=== PATIENT | female | born 1985 | race Two or more races ===

== ENCOUNTER 2017-08-01 14:26 | Emergency (ER) | payer OTHER ==
[~2017-08-01] VITALS: Ht 167.6 cm; Wt 104.3 kg
[~2017-08-01 14:26] MED LIST: AZITHROMYCIN250 MG ORAL; FLONASE1 SPRAYS NASAL; IBUPROFEN600 MG ORAL; TRAMADOL HCL50 MG ORAL; ZITHROMAX250 MG ORAL
[2017-08-01 14:48] VITALS: BP 129/77
--- NOTE | 2017-08-01 14:51 | Emergency Room Report ---
History of Present Illness General Chief Complaint: Skin Rash/Abscess Source: Patient Present Illness HPI 32-year-old female patient presents ER complaining of swelling near nail of left thumb on the ulnar side. Patient reports history of similar symptoms 1 year ago on his hand. Patient reports was drained at that time. Patient reports no drainage coming from hand at this time. Patient reports no other symptoms. Patient denies fever, chest pain, shortness of breath. Patient reports hx of biting nails. Allergies: Coded Allergies: No Known Allergies (Unverified , 03/30/14) Patient History Past Medical History: see triage record Last Menstrual Period: NONE-Hysterectomy Now: No Reviewed Nursing Documentation: PMH: Agreed; PSxH: Agreed Nursing Documentation-PMH Past Medical History: No History, Except For Hx Hypertension: No Hx Asthma: No - TONSILITIS Review of Systems All Other Systems: negative except mentioned in HPI Physical Exam Vital Signs Date Time Temp Pulse Resp B/P (MAP) Pulse Ox O2 Delivery O2 Flow Rate FiO2 08/01/17 14:28 98.0 118 20 133/87 97 Room Air 98.1 Sp02 EP Interpretation: reviewed, normal General Appearance: well appearing, no apparent distress, alert, GCS 15, non- toxic Head: normocephalic, atraumatic Eyes: bilateral eye normal inspection, bilateral eye PERRL Neck: full range of motion Respiratory: lungs clear, normal breath sounds, no rhonchi, no respiratory distress, no accessory muscle use, no wheezing, speaking full sentences Cardiovascular #1: regular rate, rhythm, no edema Cardiovascular #2: 2+ radial (R), 2+ radial (L) Musculoskeletal: back normal, digits/nails normal, gait/station normal, normal range of motion, non-tender, other - NVI Neurologic: alert, oriented x3, responsive, motor strength/tone normal, sensory intact Psychiatric: mood/affect normal Skin: other - left hand, left thumb: paronychia near lateral border of nail bed , no drainge, eryethma, TTP Procedures Incision and Drainage Incision and Drainage : Consent: Verbal Site: thumb Blade Size: 11 I & D Procedure: betadine prep, sterile drapes applied, sterile dressing applied Wound Location: upper extremity - left thumb Wound's Depth, Shape: superficial Wound Length (cm): 1 Wound Explored: contaminated Irrigated w/ Saline (ccs): 10 Anesthesia: 1% Lidocaine Volume Anesthetic (ccs): 1 Splint Applied?: No Sling Applied?: No Patient Tolerated: Well Complications: None Medical Decision Making PA Attestation Dr. Correa is my supervising Physician whom patient management has been discussed with. Diagnostic Impression: Primary Impression: Paronychia of left thumb ER Course Pt. presents to the ED c/o abscess on finger. Ddx considered but are not limited to rash, cellulitis, abscess, felon, paronychia, hangnail, herpetic kiran. Vital signs: are WNL, pt. is afebrile Ordered Bacitracin and Lidocaine ED COURSE: Digital block of finger performed with lidocaine. I&D of paronychia performed. Pus expressed from finger. Patient finger no longer swollen, patient reports decrease in pain symptoms. Sterile dressing and Bacitracin applied to wound following procedure. Patient instructed to keep wound clean and dry and to follow-up with primary care provider in 2 days for wound check. Stop biting nails. Take full course of abx. Return to ER if symptoms worsen. DISCHARGE -Rx provided for Bactrim to cover for MRSA. -Rx provided for Tylenol #3. CURES reviewed. Rx provided for Bacitracin. At this time pt. is stable for d/c to home. Patient resting comfortably, in no acute distress, nontoxic appearing, laughing and smiling. Will provide printed patient care instructions and any necessary prescriptions. Care plan and follow up instructions have been discussed with the patient prior to discharge. Patient instructed to follow-up with primary care provider in 2 - 3 days for wound recheck. Patient questions asked and answered. Patient reports understanding and agreement to treatment plan. ER precautions given. Patient instructed to return to ER immediately for any new or worsening of symptoms including but not limited to fever, worsening of pain symptoms, worsening of erythema, red streaking. - Please note that this Emergency Department Report was dictated using Mirror [employer] rigger technology software, occasionally this can lead to erroneous entry secondary to interpretation by the dictation equipment. Last Vital Signs Date Time Temp Pulse Resp B/P (MAP) Pulse Ox O2 Delivery O2 Flow Rate FiO2 08/01/17 14:28 98.0 118 20 133/87 97 Room Air 98.1 Disposition: HOME, SELF-CARE Condition: Stable Scripts Acetaminophen With Codeine (T#3) (TYLENOL #3 TAB*) Y Tab 1 TAB ORAL Q4H PRN for For Pain, #10 TAB Prov: Hayden Covington 08/01/17 Bacitracin/Polymyxin B Sulfate (BACITRACIN-POLYMYXIN OINTMENT) 28.35 Gm Oint...g. 1 APPLIC TP BID for 14 Days, GM Prov: Hayden Covington 08/01/17 Trimethoprim/Sulfamethoxazole 160/800* (BACTRIM DS TABLET*) 1 Each Tablet 1 TAB ORAL TWICE A DAY for 7 Days, #14 TAB Prov: Hayden Covington 08/01/17 Patient Instructions: Paronychia, [id number] Additional Instructions: Followup with primary care provider in 2-3 days for wound check. Keep wound clean and dry. Warm soaks. Do not bite nails. Take medications as directed. Patient questions asked and answered. ER precautions given, patient instructed to return to ER immediately for any new or worsening of symptoms. Hayden Covington August 01, 2017 14:51
[2017-08-01] MEDS ORDERED: Lidocaine 1% Plain 30 ml INJ ONE (15:00)
[2017-08-01] MEDS ORDERED: Tylenol #3 tab (300mg/30mg) ORAL ONE (15:00)
[2017-08-01] MEDS ORDERED: Bacitracin Oint UD TOPIC ONE (15:00)
[2017-08-01] MEDS ORDERED: BACITRACIN-P28.35 GM TP (15:09)
[2017-08-01] MEDS ORDERED: BACTRIM DS TAB1 EAC1 ORAL (15:09)
[2017-08-01] MEDS ORDERED: ACETAMINOPHEN-1 EAC1 ORAL (15:28)
[2017-08-01 15:45] VITALS: BP 119/80
== END 2017-08-01 16:50 | disposition home or self-care (01) ==
LOC: EMR 16:13
DX: L03.012 Cellulitis of left finger (principal)
CPT/HCPCS: 10060; 99284; J2001

== ENCOUNTER 2018-01-09 15:06 | Emergency (ER) | payer OTHER ==
[~2018-01-09] VITALS: Ht 167.6 cm; Wt 98.4 kg
[~2018-01-09 15:06] MED LIST changes: +ACETAMINOPHEN-1 EAC1 ORAL; +BACITRACIN-P28.35 GM TP; +BACTRIM DS TAB1 EAC1 ORAL
[2018-01-09] MEDS ORDERED: NKM (15:13)
[2018-01-09 15:15] VITALS: BP 133/85
--- NOTE | 2018-01-09 16:05 | Emergency Room Report ---
History of Present Illness General Chief Complaint: Pain Source: Patient, Medical Record Present Illness HPI 32-year-old female presents to the emergency department complaining of 9 out of 10 in severity progressive localized pain and the right side of her groin 4 days. Patient reports that she initially felt a small bump which has progressed in size. Patient denies fevers, chills, open wounds, rashes or history of similar presentation. Patient states that she does frequently get small abscesses in her axilla. Patient states she has never had an abscess in this area. Denies recent travel, recent illness or ill contacts. denies blisters, oral lesions, or sloughing of the skin Allergies: Coded Allergies: No Known Allergies (Unverified , 03/30/14) Patient History Past Medical History: see triage record Past Surgical History: none Pertinent Family History: none Last Menstrual Period: hysterectomy done on 06/13 Now: No Immunizations: UTD Reviewed Nursing Documentation: PMH: Agreed; PSxH: Agreed Nursing Documentation-PMH Past Medical History: No History, Except For Hx Hypertension: No Hx Asthma: No - TONSILITIS Hx Gastrointestinal Problems: No - Hysterectomy 07/14 Review of Systems All Other Systems: negative except mentioned in HPI Physical Exam Vital Signs Date Time Temp Pulse Resp B/P (MAP) Pulse Ox O2 Delivery O2 Flow Rate FiO2 01/09/18 15:10 98.3 94 18 133/85 98 Room Air 98.2 Sp02 EP Interpretation: reviewed, normal General Appearance: no apparent distress, alert, GCS 15, non-toxic Head: normocephalic, atraumatic Eyes: bilateral eye normal inspection, bilateral eye PERRL ENT: hearing grossly normal, normal voice Neck: full range of motion Respiratory: lungs clear, normal breath sounds, speaking full sentences Cardiovascular #1: regular rate, rhythm Musculoskeletal: back normal, gait/station normal, normal range of motion, non- tender Neurologic: alert, oriented x3, responsive, motor strength/tone normal, sensory intact, normal gait, speech normal, grossly normal Psychiatric: judgement/insight normal Skin: no rash, warm/dry, well hydrated, other - 1.5 cm indurated swollen, erythematous and tender lump on the right inguinal area, border is easily palpated, there is some fluctuance, no blisters or vesicles. Lymphatic: no adenopathy Procedures Incision and Drainage Incision and Drainage : Consent: Verbal Site: right inguinal area Blade Size: 11 I & D Procedure: betadine prep, sterile drapes applied, sterile dressing applied Wound Location: upper extremity - right inguinal area Wound's Depth, Shape: linear Wound Length (cm): 1 Wound Explored: contaminated - thick purulent material was expressed. Anesthesia: Lidocaine w/ Epi Volume Anesthetic (ccs): 1 Splint Applied?: No Sling Applied?: No Patient Tolerated: Well Complications: None Medical Decision Making PA Attestation Dr. Galvan is my supervising Physician whom patient management has been discussed with. Diagnostic Impression: Primary Impression: Infected epidermoid cyst ER Course 32-year-old female presents to the emergency department complaining of 9 out of 10 in severity progressive localized pain and the right side of her groin 4 days. Patient reports that she initially felt a small bump which has progressed in size. Patient denies fevers, chills, open wounds, rashes or history of similar presentation. Patient states that she does frequently get small abscesses in her axilla. Patient states she has never had an abscess in this area. Denies recent travel, recent illness or ill contacts. denies blisters, oral lesions, or sloughing of the skin Ddx considered but are not limited to cellulitis, abscess, cystic acne, necrotizing fasciitis, insect bite. Vital signs: are WNL, pt. is afebrile H&PE are most consistent with infected cyst in the right inguinal area. ORDERS: none required at this time, the diagnosis is clinical ED INTERVENTIONS: -Tylenol PO -I & D. - pt. reported immediate relief of pain after incision and drainage. she states the pressure pain is no longer there. -bacitracin and sterile dressing is applied by the RN. d/w pt. that this may return in the futures as definitive treatment for this condition is surgical excision. DISCHARGE: At this time pt. is stable for d/c to home. Will provide printed patient care instructions, and any necessary prescriptions. Care plan and follow up instructions have been discussed with the patient prior to discharge. Last Vital Signs Date Time Temp Pulse Resp B/P (MAP) Pulse Ox O2 Delivery O2 Flow Rate FiO2 01/09/18 15:15 98.2 94 18 133/85 98 Room Air 98.2 Status: improved Disposition: HOME, SELF-CARE Condition: Stable Scripts Bacitracin/Polymyxin B Sulfate (BACITRACIN-POLYMYXIN OINTMENT) 28.35 Gm Oint...g. 1 APPLIC TP BID, #28.3 GM Prov: Erica Degroot 01/09/18 Trimethoprim/Sulfamethoxazole 160/800* (BACTRIM DS TABLET*) 1 Each Tablet 1 TAB ORAL TWICE A DAY for 7 Days, #14 TAB Prov: Erica Degroot 01/09/18 Cephalexin* (KEFLEX*) 500 Mg Capsule 500 MG ORAL EVERY 12 HOURS for 7 Days, #14 CAP 0 Refills Prov: Erica Degroot 01/09/18 Referrals: [facility],REFERRING (PCP) Patient Instructions: Epidermal Cyst, [id number], Hidradenitis Suppurativa Additional Instructions: Take medications as directed. Follow up with a Primary Care Provider in 3-5 days, even if your symptoms have resolved. --Please review list of primary care clinics, if you do not already have a primary care provider Return sooner to ED if new symptoms occur, or current symptoms become worse. - Please note that this Emergency Department Report was dictated using [employer] Republicdriller's assistant technology software, occasionally this can lead to erroneous entry secondary to interpretation by the dictation equipment. Erica Degroot Jan 09, 2018 16:05
[2018-01-09] MEDS ORDERED: BACTRIM DS TAB1 EAC1 ORAL (16:07)
[2018-01-09] MEDS ORDERED: BACITRACIN-P28.35 GM TP (16:07)
[2018-01-09] MEDS ORDERED: CEPHALEXIN500 MG ORAL (16:07)
[2018-01-09] MEDS ORDERED: Bacitracin Oint UD TOPIC ONE (16:15)
[2018-01-09 16:33] VITALS: BP 133/85
== END 2018-01-09 16:33 | disposition home or self-care (01) ==
LOC: EMR 16:01
DX: L72.0 Epidermal cyst (principal)
CPT/HCPCS: 10060; 99283

== ENCOUNTER 2020-01-31 23:58 | Emergency (ER) | payer OTHER ==
[~2020-01-31] VITALS: Ht 165.1 cm; Wt 77.1 kg
[~2020-01-31 23:58] MED LIST changes: +CEPHALEXIN500 MG ORAL; +NKM
[2020-02-01 00:08] VITALS: BP 113/75
--- NOTE | 2020-02-01 00:16 | NUR ---
Nurse Note: Pt walked in c/o lower abd pain since 3 days. Pt stated she has been taking MoM at home, not effective. Pt stated last BM was AM. Pt stated pain is more of a discomfort.
--- NOTE | 2020-02-01 00:19 | Emergency Room Report ---
History of Present Illness General Chief Complaint: Abdominal Pain Source: Patient Present Illness HPI 84-year-old female with no significant past medical history. She had a previous . She presents with chief plan abdominal pain. Onset for 3 days now. But worse today. She has been taking milk of magnesia for her pain is not helping. Denies any nausea vomiting or diarrhea. No fever or chills. Pain is 9 out of 10. Worse with palpation. Better with rest. Pain is diffuse in nature. No urinary complaint. Allergies: Coded Allergies: No Known Allergies (Unverified , 03/30/14) COVID-19 Screening Contact w/high risk pt: No Experienced COVID-19 symptoms?: No COVID-19 Testing performed LOWERATOR OPERATOR: No Patient History Past Medical History: see triage record, old chart reviewed Past Surgical History: Pertinent Family History: none Social History: Denies: smoking Last Menstrual Period: na Now: No Immunizations: other Reviewed Nursing Documentation: PMH: Agreed; PSxH: Agreed Nursing Documentation-PMH Past Medical History Deferred: Patient Unconscious Hx Cardiac Problems: No Hx Hypertension: No Hx Asthma: No - TONSILITIS Hx Gastrointestinal Problems: No - Hysterectomy 07/14; abdomenoplasy Review of Systems Eye: Denies: eye pain, blurred vision ENT: Denies: ear pain, nose congestion, throat swelling Respiratory: Denies: cough, shortness of breath Cardiovascular: Denies: chest pain, palpitations Gastrointestinal: Reports: abdominal pain; Denies: diarrhea, nausea, vomiting Musculoskeletal: Denies: back pain, joint pain Skin: Denies: rash Neurological: Denies: headache, numbness Endocrine: Denies: increased thirst, increased urine Hematologic/Lymphatic: Denies: easy bruising All Other Systems: negative except mentioned in HPI Physical Exam Vital Signs Date Time Temp Pulse Resp B/P (MAP) Pulse Ox O2 Delivery O2 Flow Rate FiO2 02/01/20 00:00 98.4 80 17 113/75 (88) 96 Room Air Vitals normal Sp02 EP Interpretation: reviewed, normal General Appearance: well appearing, no apparent distress, alert Head: normocephalic, atraumatic Eyes: bilateral eye PERRL, bilateral eye EOMI ENT: hearing grossly normal, normal pharynx Neck: full range of motion, supple, no meningismus Respiratory: chest non-tender, lungs clear, normal breath sounds Cardiovascular #1: regular rate, rhythm, no murmur Gastrointestinal: no mass, no organomegaly, no bruit, non-distended, abnormal bowel sounds - Hyperactive, tenderness - Diffuse Musculoskeletal: back normal, normal range of motion, gait/station normal Psychiatric: mood/affect normal Medical Decision Making Diagnostic Impression: Primary Impression: Abdominal pain Qualified Codes: R10.84 - Generalized abdominal pain Additional Impression: Enteritis ER Course This patient presents with abdominal pain. Labs unremarkable. CT scan show possible enteritis/diarrheal disease. This probably secondary to the milk of magnesia and magnesium citrate that she took. No evidence of acute abdomen or obstruction. No evidence of UTI. Will discharge home. CT/MRI/US Diagnostic Results CT/MRI/US Diagnostic Results : Imaging Test Ordered: CT abdomen pelvis Impression Read by radiologist. None [place] multiple prominent lymph nodes in the upper retroperitoneum. Large bowel contains some fluid. Last Vital Signs Date Time Temp Pulse Resp B/P (MAP) Pulse Ox O2 Delivery O2 Flow Rate FiO2 02/01/20 00:08 80 17 Room Air 02/01/20 00:08 98.4 113/75 96 Status: improved Disposition: HOME, SELF-CARE Condition: Stable Scripts Hydrocodone/Acetaminophen 5-325* (HYDROCODONE/ACETAMINOPHEN 5-325*) 1 Each Tablet 1 TAB ORAL Q6H PRN for For Pain, #10 TAB 0 Refills Prov: Jim Lemus MD 02/01/20 Patient Instructions: Abdominal Pain, Adult Additional Instructions: Increase fluids. Follow-up with your doctor in 2-3 days if not better. Return if worse. Jim Lemus MD Feb 01, 2020 00:18
[2020-02-01] MEDS ORDERED: Morphine Sulfate 4mg/ml Inj (IV USE ONLY) IVP ONE ×2 (00:30→02:45)
[2020-02-01 00:40] LABS: APPEARANCE,URINE CLEAR; BASOPHILS % (AUTO) 0.8 % (0.0-2.0); BILIRUBIN, URINE NEGATIVE (NEGATIVE); COLOR,URINE PALE YELLOW; EOSINOPHILS % (AUTO) 1.3 % (0.0-3.0); GLUCOSE, URINE (UA) NEGATIVE (NEGATIVE); HEMATOCRIT 41.7 % (37.0-47.0); HEMOGLOBIN 14.2 G/DL (12.0-16.0); KETONES,URINE NEGATIVE (NEGATIVE); LEUKOCYTE ESTERASE ,URINE NEGATIVE (NEGATIVE); LYMPHOCYTES % (AUTO) 41.2 % (20.0-45.0); MEAN CORPUSCULAR VOLUME 89 FL (80-99); MONOCYTES % (AUTO) 7.7 % (1.0-10.0); NITRITE,URINE NEGATIVE (NEGATIVE); PH,URINE 6 (4.5-8.0); PLATELET COUNT 305 K/UL (150-450); PROTEIN,URINE NEGATIVE (NEGATIVE); RED CELL DISTRIBUTION WIDTH 12.1 % (11.6-14.8); UROBILINOGEN,URINE NORMAL MG/DL (0.0-1.0); WHITE BLOOD COUNT 6.7 K/UL (4.8-10.8)
[2020-02-01 00:55] LABS: ALANINE AMINOTRANSFERASE 14 U/L (12-78); ALBUMIN 4.3 G/DL (3.4-5.0); ALBUMIN/GLOBULIN RATIO 1.4 (1.0-2.7); ALKALINE PHOSPHATASE 56 U/L (46-116); ASPARTATE AMINO TRANSFERASE 10 U/L (15-37); BILIRUBIN,TOTAL 0.6 MG/DL (0.2-1.0); BLOOD UREA NITROGEN 15 mg/dL (7-18); CALCIUM 9.1 MG/DL (8.5-10.1); CARBON DIOXIDE 27 MMOL/L (21-32); CHLORIDE 101 MMOL/L (98-107); POTASSIUM 3.5 MMOL/L (3.5-5.1); SODIUM 137 MMOL/L (136-145)
--- NOTE | 2020-02-01 01:46 | NUR ---
ED Nurse Note: Patient returned from CT in stable condition
--- NOTE | 2020-02-01 02:41 | Diagnostic Imaging Report ---
EXAM: CT Abdomen and Pelvis Without Intravenous Contrast CLINICAL HISTORY: ABD PAIN TECHNIQUE: Axial computed tomography images of the abdomen and pelvis without intravenous contrast. CTDI is 6.6 mGy and DLP is 357.4 mGy-cm. One or more of the following dose reduction techniques were used: automated exposure control, adjustment of the mA and/or kV according to patient size, use of iterative reconstruction technique. COMPARISON: No relevant prior studies available. FINDINGS: Lung bases: No mass. No consolidation. ABDOMEN: Liver: Unremarkable. Gallbladder and bile ducts: Unremarkable. Pancreas: No ductal dilation. Spleen: Unremarkable. Adrenals: Unremarkable. Kidneys and ureters: No obstructing stones. No hydronephrosis. Mild right pelvocaliectasis. Stomach and bowel: No bowel obstruction. No bowel wall thickening. Fluid-filled large bowel. Mild colonic diverticulosis. PELVIS: Appendix: No evidence of appendicitis. Bladder: No stones. Reproductive: 4.5 cm right ovary containing 2.3 cm follicle. 2.5 cm left ovary. ABDOMEN and PELVIS: Intraperitoneal space: Trace pelvic free fluid. Bones/joints: No acute fractures. Soft tissues: Unremarkable. Vasculature: No abdominal aortic aneurysm. Lymph nodes: Nonspecific multiple prominent subcentimeter lymph nodes in the upper retroperitoneum. IMPRESSION: 1. Nonspecific multiple prominent subcentimeter lymph nodes in the upper retroperitoneum. Large bowel contain some fluid which is nonspecific. Overall correlate with gastroenteritis/diarrheal disease. 2. Mild Colonic diverticulosis without diverticulitis. 3. Trace pelvic free fluid and prominent right ovary containing a 2.3 cm follicle. Possibly physiologic change.
[2020-02-01] MEDS ORDERED: HYDROCODON-ACE1 EA15 ORAL (03:38)
[2020-02-01 03:45] VITALS: BP 122/80
--- NOTE | 2020-02-01 03:45 | NUR ---
ER DISCHARGE NOTE: Patient is cleared to be discharged per ERMD, pt is aox4, on room air, with stable vital signs. pt was given dc and prescription instructions, pt was able to verbalize understanding, pt id band and iv site removed intact without complications. pt is able to ambulate with steady gait. pt took all belongings. pt stable upon discharge.
== END 2020-02-01 03:45 | disposition home or self-care (01) ==
LOC: EMR 02-01 00:23
DX: K52.9 Noninfective gastroenteritis and colitis, unspecified (principal); R10.84 Generalized abdominal pain; Z90.710 Acquired absence of both cervix and uterus
CPT/HCPCS: 36415; 74176; 80053; 81003; 81025; 83690; 85025; 96361; 96374; 96375; 96376; J2270; J2405; J7030; Z7502; 99284